=== PATIENT | male | born 1960 | race Caucasian/White ===

== ENCOUNTER 2020-02-29 13:46 | Inpatient (IN) | payer OTHER ==
[~2020-02-29] VITALS: Ht 167.6 cm; Wt 55.3 kg
[2020-02-29 13:48] VITALS: BP 156/94
[2020-02-29] MEDS ORDERED: LIPITOR 20 MG T20 M1 PO (14:16)
[2020-02-29] MEDS ORDERED: ZESTRIL5 MG PO (14:16)
[2020-02-29] MEDS ORDERED: FLOMAX0.4 MG PO (14:17)
[2020-02-29] MEDS ORDERED: ADULT ASPIRIN R81 MG PO (14:17)
[2020-02-29] MEDS ORDERED: PROAIR HFA8.5 GM INH (14:20)
[2020-02-29] MEDS ORDERED: COQ-1030 MG PO (14:30)
[2020-02-29] MEDS ORDERED: FLEXERIL PO (14:30)
[2020-02-29] MEDS ORDERED: IRON 100-VITAM1 EACH PO (14:31)
[2020-02-29 14:37] LABS: BE -7.5 mmol/L (-2 to +3); PCO2 47.8 mmHg (35.0-45.0)
[2020-02-29 14:41] LABS: PO2 306.9 mmHg (75.0-100.0)
[2020-02-29 14:51] LABS: HEMATOCRIT 44.5 % (42.0-52.0); HEMOGLOBIN 15.5 gm/dL (14.0-18.0); MCHC 34.7 g/dL (28.0-37.0); MCV 103.8 fL (80.0-100.0); MPV 7.5 fl. (7.2-11.1); NUCLEATED RBCS 0 /100WBC; PLATELET COUNT* 233 thou/uL (150-400); RBC 4.29 mil/uL (4.50-6.00); RDW-CV 14.8 % (10.5-14.5); WBC 17.7 thou/uL (4.0-11.0)
[2020-02-29 15:29] LABS: APTT 25.8 Seconds (25.0-31.3); INR 1.2; PROTIME 11.9 Seconds (9.20-11.50)
[2020-02-29 15:31] LABS: CALCIUM 9.1 mg/dL (8.5-10.1); CREATININE 0.9 mg/dL (0.6-1.3)
[2020-02-29 15:32] LABS: ABSOLUTE BASOPHILS 0.2 thou/uL (0.0-0.2); ABSOLUTE EOSINOPHILS 3.9 thou/uL (0.0-0.7); ABSOLUTE LYMPHOCYTES 2.7 thou/uL (0.8-5.3); ABSOLUTE MONOCYTES 0.9 thou/uL (0.0-1.2); ABSOLUTE NEUTROPHILS 10.1 thou/uL (1.6-8.1)
[2020-02-29 15:33] LABS: ANISOCYTOSIS Occasional; PLATELET ESTIMATE ADEQUATE
[2020-02-29 15:34] LABS: MACROCYTES 1+
[2020-02-29 15:41] LABS: ALBUMIN 3.1 g/dL (3.4-5.0); TOTAL BILIRUBIN 0.8 mg/dL (<0.1-1.0); TOTAL PROTEIN 7.6 g/dL (6.4-8.2)
[2020-02-29 15:44] LABS: POTASSIUM 2.9 mmol/L (3.5-5.1)
[2020-02-29 17:45] VITALS: BP 150/99
[2020-02-29 18:09] VITALS: BP 154/107
[2020-02-29 19:01] LABS: URINE BLOOD NEGATIVE (Negative); URINE CLARITY CLEAR; URINE COLOR DARK YELLOW; URINE GLUCOSE-RANDOM NEGATIVE (Negative); URINE KETONES NEGATIVE (Negative); URINE LEUKOCYTES-REFLEX NEGATIVE (Negative); URINE NITRITE-REFLEX NEGATIVE (Negative); URINE PROTEIN TRACE (Negative); URINE SPECIFIC GRAVITY >= 1.030 (1.005-1.030)
[2020-02-29 19:03] LABS: ICTOTEST (BILI CONFIRMATORY) Negative (Negative); URINE BILIRUBIN 1+ (Negative)
[2020-02-29 19:08] LABS: AMP/METHAMP Negative (Negative); BARBITURATES Negative (Negative); BENZODIAZEPINES Negative (Negative); COCAINE Negative (Negative); METHADONE Negative (Negative); OPIATES Negative (Negative); PCP Negative (Negative); THC POSITIVE (Negative)
--- NOTE | 2020-02-29 19:10 | NUR ---
PT ADMITTED TO ROOM 229 FROM ED AT APPROX 1805, REPORT RECEIVED FROM MYLES MI. PT CAME IN W/ SHORTNESS OF AIR AND IS CURRENTLY ON BIPAP, DOES NOT USE BIPAP OR WEAR OXYGEN AT HOME. PT ORIENTED TO ROOM AND CALL LIGHT, ADMISSION ASSESSMENT AND HX COMPLETED CHARTED, SEPSIS SCREENING COMPLETED, POSITIVE. PT AOX4, HAS NO C/O PAIN, TRACING ST ON THE MONITOR, MEDS PER OCT, HOURLY ROUNDING OBSERVED, PT UP AD BLAS, SHOWED HOW TO USE BIPAP AND HAS URINAL AT BEDSIDE TO USE WELL, WILL CONTINUE POC.
[2020-02-29 20:00] VITALS: BP 110/80
[2020-03-01] VITALS (7 sets, daily range): BP systolic 119–140; BP diastolic 74–88
[2020-03-01 04:50] LABS: HEMATOCRIT 38.7 % (42.0-52.0); HEMOGLOBIN 13.6 gm/dL (14.0-18.0); MCHC 35.1 g/dL (28.0-37.0); MCV 102.8 fL (80.0-100.0); MPV 8.4 fl. (7.2-11.1); RBC 3.77 mil/uL (4.50-6.00); RDW-CV 15.1 % (10.5-14.5); WBC 8.2 thou/uL (4.0-11.0)
[2020-03-01 05:09] LABS: ALBUMIN 2.7 g/dL (3.4-5.0); CALCIUM 8.6 mg/dL (8.5-10.1); TOTAL BILIRUBIN 0.7 mg/dL (<0.1-1.0); TOTAL PROTEIN 6.8 g/dL (6.4-8.2)
[2020-03-01 05:18] LABS: POTASSIUM 4.9 mmol/L (3.5-5.1)
--- NOTE | 2020-03-01 08:20 | NUR ---
ASSUMED CARE OF PT AFTER REPORT AT 1930. PT A&OX4. VSS. PHYSICAL ASSESSMENT COMPLETED AND CHARTED. PT ON BIPAP/3L NC WHEN EATING. PT TRACING SR/ST/PAC ON TELE. PT DENIES ANY PAIN. PT ABLE TO SLEEP WELL ON BED. CALL LIGHT WITHIN REACH.
--- NOTE | 2020-03-01 10:05 | EKG ---
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: : 1960 Requested By: Boone Heredia Order Number: [id number] MD: Zain Peraza Measurements Intervals [place] Rate: 156 P: 83 CT: 112 QRS: 74 QRSD: 90 T: -27 QT: 291 QTc: 469 Interpretive Statements Sinus tachycardia consecutive pac's with aberrancy Nonspecific T abnormalities, lateral leads Artifact in lead(s) I,II,aVR,aVL,V1,V3,V4,V5,V6 and baseline wander in lead(s) V2,V3,V4,V5,V6 No previous ECG available for comparison Electronically Signed On 03-01-2020 10:05:18 CDT by Zain Peraza [email or web address] <ELECTRONICALLY SIGNED> By: Zain Peraza MD, [facility] 03/01/20 1005 1352 1352 Zain Peraza MD, [facility] /EPI
--- NOTE | 2020-03-01 13:54 | NUR ---
ASSUMED PT CARE AT 0730, PT RESTING IN BED, AOX4 AND HAS NO C/O PAIN OR SHORTNESS OF BREATH. PT INITIALLY ON BIPAP THIS MORNING, SATTING 100% SO I TOOK BIPAP OFF AND PUT PT ON 3L NC SO HE COULD EAT BREAKFAST. PT SAT 98%, TITRATED HIM DOWN TO 1L, SAT 97% AND STILL NO C/O SHORTNESS OF BREATH. PT WORKING W/ RT TO GET BREATHING TREATMENTS AND HAS PULM ON BOARD WELL. PT TO BE MOVED TO ROOM 233 TO CONTINUE BREATHING TREATMENTS AND BIPAP AT NIGHT USE SINCE 233 IS A NEGATIVE PRESSURE ROOM. PT GOAL IS TO TRANSFER ROOMS AND KEEP O2 SATS ABOVE 92%. AM ASSESSMENT CHARTED, MEDS PER OCT, HOURLY ROUNDING OBSERVED, PT UP AD BLAS, WILL CONTINUE POC.
[2020-03-01 14:00] LABS: CALCIUM 8.9 mg/dL (8.5-10.1); POTASSIUM 5.1 mmol/L (3.5-5.1)
--- NOTE | 2020-03-01 16:36 | NUR ---
Pt in isolation, being tested for COVID 19. Pt lives at home with his sister in [place]. SW to continue to follow to assist with safe dc planning if needs arise.
--- NOTE | 2020-03-01 17:47 | CON ---
[address] [address] CONSULTATION Name: GABRIEL CHOI Room: [place] [address] ADM IN M.R.#: [id number] Admission: 02/29/20 Attend Phys: Nivia Shine Discharge: Date of : 62 Report #: [id number] THIS REPORT FOR: //name// cc: MEL William family physician/PCP MEL William family physician/PCP ~ THIS REPORT FOR: //name// CC: MEL physician/PCP Nivia Montero DATE OF SERVICE: 03/01/2020 REQUESTING PHYSICIAN: Consult has been requested by Dr. Nivia Montero. INDICATION FOR CONSULTATION: Shortness of breath. HISTORY OF PRESENT ILLNESS: The patient is a 59-year-old gentleman, whose past medical history includes a history of COPD. The patient is not known to be on oxygen or positive airway pressure therapy at home. He is an active smoker and smokes about 2 packs a day and has been smoking for several decades. The patient is from [facility] and was visiting friends and family here when he started developing increasing shortness of breath about a week ago. This worsened further yesterday, which is the reason the patient came to this hospital. The patient had used a nebulizer at home with marginal improvement. He does report a cough. He does report sputum production, says that it has been yellow as well as brown. He reports that he had a sore throat for the last several days. He says that the sore throat definitely is new for him and he does not usually have a sore throat. He reports some clear nasal discharge as well. He reports that he has had some clear nasal discharge, longstanding. He does not report a fever or chills. There is no swelling of lower extremities or calf pain. I asked him 12 other questions for review of systems. The patient answered to the negative except as mentioned above. He has not had fever or chills. Upon arrival, the patient was found to have a significant respiratory as well as metabolic acidosis with a pH of 7.24 and a pCO2 of 48. The patient was on average volume assured pressure support via a BiPAP overnight. He, since then, has been weaned off the BiPAP and is currently on 1 liter nasal cannula. He is oxygenating in the high 90s. The patient does still report significant shortness of breath, but it is better. His chest x-ray does not show acute findings, although there are changes consistent with COPD. PAST MEDICAL HISTORY: COPD, I do not have previous lung function studies available at this time; coronary artery disease, status post coronary artery bypass graft, I do not have any previous measure of his left ventricular ejection fraction available at this time either; hyperlipidemia; [place] [address] CONSULTATION Name: GABRIEL CHOI Room: [address] IN .R.#: [id number] Admission: 02/29/20 Attend Phys: Nivia Shine Discharge: Date of : 62 Report #: [id number] history of prostatism. SOCIAL HISTORY: He has an extensive history of smoking 2 packs a day for several decades, still smokes, also has a history of THC use. Reports weekly alcohol use. CURRENT MEDICATIONS: List in [employer] reviewed. HOME MEDICATIONS: List also in [employer] reviewed. FAMILY HISTORY: There is no pertinent family history known at this time. ALLERGIES: No known drug allergies. PHYSICAL EXAMINATION: GENERAL: Alert, awake and oriented. He does appear to be underweight, his body mass index is 19.9. VITAL SIGNS: He has a pulse of 91 and a blood pressure of 124/81. His respiratory rate is mildly elevated to around 22-24. He is afebrile with a temperature of 36.8. He is oxygenating in the high 90s. HEENT: Head is normocephalic and atraumatic. NECK: Does not show raised JVP, asymmetry, mass or lymph nodes. CHEST: Symmetrical expansion on inspection and palpation. On auscultation, breath sounds are decreased, expirations are prolonged. I do not hear any added sounds. HEART: Regular. There is no murmur. ABDOMEN: Soft and nontender. EXTREMITIES: Lower extremities show no edema and no calf tenderness. SKIN: Dry and intact. NEUROLOGICAL: Moves all extremities bilaterally equally and spontaneously with no focal deficit identified. LABORATORY DATA: The patient did have a chest x-ray done yesterday, it does show some hyperinflation consistent with COPD. I do not identify any infiltrate or increase in vascular congestion. On this x-ray, there is a small radiopaque density noted at the right lung base as well as left lung base. I do not see any definite infiltrate, both chronic changes as well as an early infiltrate and if small areas of atelectasis can give this picture. The patient did have an arterial blood gas performed yesterday in addition to showing a respiratory acidosis, it shows a metabolic acidosis as well, not fully compensated, pCO2 of 7.24. The arterial blood gas is in [employer] and is reviewed. The patient's CBC is in [employer], this is also reviewed. Macrocytosis is noted. [facility] These are also reviewed. Elevated LFTs are noted. BUN and creatinine are unremarkable. Mild elevation in creatinine trending up slightly this morning is noted. PT and PTT are within the normal range. I just ordered a D-dimer, which is pending. His toxicology screen is positive for [facility] [address] [id number] CONSULTATION Name: GABRIEL CHOI MARK Room: [place] [address] ADM IN ..#: [id number] Admission: 02/29/20 Attend Phys: Nivia Shine Discharge: Date of : 62 Report #: [id number] marijuana. His urinalysis shows trace protein and bilirubin in [employer] reviewed. Hepatitis panel is pending. COVID-19 antigen is negative, COVID-19 PCR is pending. ASSESSMENT AND PLAN: 1. Acute hypercarbic respiratory failure with metabolic as well as respiratory acidosis. The patient does have a history of chronic obstructive pulmonary disease and does appear to be in a chronic obstructive pulmonary disease exacerbation, which is the etiology of his acute respiratory failure. The reason why he has developed an acute exacerbation of COPD, does need to be defined further. The patient's history is consistent with a viral respiratory tract infection with secondary bacterial involvement. Thromboembolism is not ruled out at this time. For now, I would recommend keeping the patient on average volume assured pressure support via a BiPAP device while asleep, if feasible. It is, however, noted that the patient currently is not in a negative pressure room. Therefore, if the patient's COVID PCR is not back today, then I may do an arterial blood gas today to assess the importance of the use of BiPAP while asleep, but I would favor continuing. 2. Chronic obstructive pulmonary disease exacerbation. The patient remains on Xopenex. There is an expiratory filter being used with his nebs. He is also on budesonide as well as Solu-Medrol. I continued the same at this time. 3. Viral respiratory tract infection with secondary acute bacterial bronchitis. The patient's history is consistent with this. I do not see any definite infiltrates on the patient's chest x-ray, but I would repeat a chest x-ray to rule out any developing infiltrates. Meanwhile, I will recommend continuing with ceftriaxone and we will add azithromycin. The COVID-19 antigen is negative, pending PCR. The patient remains in enhanced isolation. 4. Abnormal liver function enzymes with metabolic acidosis, underlying thromboembolism does need to be ruled out as well. I will start by doing a D-dimer. If the D-dimer is elevated, I will go ahead and obtain venous Dopplers down the line or if the patient's condition deteriorates, he may benefit from obtaining an echocardiogram and may need a CTA chest as well. However, I have held off on ordering these for now considering that COVID-19 is not fully ruled out yet and the risk of exposure to staff from COVID-19 needs to be limited. 5. Deep vein thrombosis prophylaxis. Recommend Lovenox. 6. Clostridium difficile prophylaxis. Florastor. 7. Gastrointestinal prophylaxis, Pepcid. 8. Macrocytosis. We will obtain further history regarding his alcohol use. If not previously performed, then suggest considering obtaining B12 and folate levels. Thanks for this consultation. <ELECTRONICALLY SIGNED> By: Cecilio Bosch MD 03/01/20 1747 [id number] [id number] Bosch MD /nt
--- NOTE | 2020-03-01 18:29 | NUR ---
NO ACUTE CHANGES THROUGHOUT SHIFT, PT HAD NO C/O SHORTNESS OF BREATH OR PAIN. MEDS PER OCT, HOURLY ROUNDING OBSERVED, FALL PRECAUTIONS IN PLACE, PT STILL IN ISO AWAITING SECOND COVID TEST RESULTS, CALL LIGHT W/IN REACH, WILL CONTINUE POC.
[2020-03-02 04:00] VITALS: BP 145/88
[2020-03-02 04:17] LABS: ABSOLUTE BASOPHILS 0.1 thou/uL (0.0-0.2); ABSOLUTE LYMPHOCYTES 1.1 thou/uL (0.8-5.3); ABSOLUTE MONOCYTES 0.9 thou/uL (0.0-1.2); ABSOLUTE NEUTROPHILS 11.8 thou/uL (1.6-8.1); BASOPHILS 0.5 %; EOSINOPHILS 0.1 %; HEMATOCRIT 32.4 % (42.0-52.0); LYMPHOCYTES 8.1 %; MCH 35.7 pg (26.0-34.0); MCHC 35.2 g/dL (28.0-37.0); MCV 101.4 fL (80.0-100.0); MONOCYTES 6.3 %; MPV 7.6 fl. (7.2-11.1); NUCLEATED RBCS 0 /100WBC; PLATELET COUNT* 219 thou/uL (150-400); RDW-CV 14.8 % (10.5-14.5); WBC 13.9 thou/uL (4.0-11.0)
[2020-03-02 04:48] LABS: ALBUMIN 2.3 g/dL (3.4-5.0); CALCIUM 7.9 mg/dL (8.5-10.1); POTASSIUM 4.2 mmol/L (3.5-5.1); TOTAL BILIRUBIN 0.5 mg/dL (<0.1-1.0); TOTAL PROTEIN 5.8 g/dL (6.4-8.2)
[2020-03-02 04:55] LABS: HEMOGLOBIN 11.4 gm/dL (14.0-18.0)
--- NOTE | 2020-03-02 06:39 | NUR ---
PT ALERT ORIENTED. O2 AT 1 LITER NC. BIPAP HS. NS AT 80MLS/HR. DENIES PAIN. TELEMETRY SHOWS SR. COVID ISOLATION. SEND OFF TEST BACK THIS AM NEGATIVE
[2020-03-02 07:08] LABS: HEPATITIS B SURFACE AG Negative (Negative)
[2020-03-02 08:00] VITALS: BP 134/86
[2020-03-02 12:12] VITALS: BP 108/61
[2020-03-02 12:28] LABS: BE -3.1 mmol/L (-2 to +3); PCO2 28.2 mmHg (35.0-45.0); PO2 72.4 mmHg (75.0-100.0); pH 7.458 (7.340-7.450)
--- NOTE | 2020-03-02 14:04 | NUR ---
SPOKE WITH SISTER FROM [place]. SISTER STATES SHE IS THE MEDIA PRODUCTION OPERATOR FOR PT. HER CONTACT INFORMATION IS [phone] AND HER NAME IS EYAD LANDON. SISTER WOULD LIKE TO CONTACTED BY PHYSICIAN IF PT DC'S TOMORROM TO DISCUSS DC PLANNING AND IF SHE NEEDS TO ARRANGE FOR ANY EQUIPMENT TO BE AT HOME WHEN PT ARRIVES.
--- NOTE | 2020-03-02 16:58 | NUR ---
SW to continue to follow. Pt might be ready to dc tomorrow, SW to follow to assist if Bipap needed at time of dc.
[2020-03-02 20:00] VITALS: BP 135/77
[2020-03-03] VITALS: BP 128/80
[2020-03-03 04:00] VITALS: BP 135/76
[2020-03-03 04:39] LABS: HEMOGLOBIN 11.7 gm/dL (14.0-18.0); MCH 36.3 pg (26.0-34.0); MCHC 35.6 g/dL (28.0-37.0); MPV 8.3 fl. (7.2-11.1); NUCLEATED RBCS 0 /100WBC; PLATELET COUNT* 223 thou/uL (150-400); RBC 3.23 mil/uL (4.50-6.00); RDW-CV 15.2 % (10.5-14.5); WBC 10.6 thou/uL (4.0-11.0)
[2020-03-03 04:54] LABS: ALBUMIN 2.4 g/dL (3.4-5.0); CREATININE 0.9 mg/dL (0.6-1.3); POTASSIUM 3.9 mmol/L (3.5-5.1); TOTAL BILIRUBIN 0.5 mg/dL (<0.1-1.0); TOTAL PROTEIN 5.6 g/dL (6.4-8.2)
[2020-03-03 05:55] LABS: ABSOLUTE LYMPHOCYTES 0.6 thou/uL (0.8-5.3); ABSOLUTE MONOCYTES 0.4 thou/uL (0.0-1.2); ABSOLUTE NEUTROPHILS 9.5 thou/uL (1.6-8.1); PLATELET ESTIMATE ADEQUATE
[2020-03-03 05:56] LABS: ANISOCYTOSIS 1+; POIKILOCYTOSIS 1+
--- NOTE | 2020-03-03 06:13 | NUR ---
ASSUMED PT CARE AT 1930. NURSING ASSESSMENT COMPLETED AT START OF SHIFT. PT VOICED NO CONCERNS. HOURLY ROUNDING COMPLETED. 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 CALL LIGHT WITHIN REACH.
[2020-03-03 08:00] VITALS: BP 129/78
[2020-03-03 12:00] VITALS: BP 116/66
[2020-03-03] MEDS ORDERED: PREDNISONE 10 M10 MG PO (12:35)
[2020-03-03] MEDS ORDERED: PROTONIX40 M1 PO (12:35)
[2020-03-03] MEDS ORDERED: CEFDINIR300 MG PO (12:35)
[2020-03-03 14:20] VITALS: BP 116/66
--- NOTE | 2020-03-03 15:02 | NUR ---
PT DCD TO HOME IN STABLE CONDITION. DC INSTRUCTIONS,PRECSRITPIONS, FOLLOW UP,ACTIVITY DIET REVIEWED WITH PT AND PT REPORTS UNDERSTANDING WITHOUT FURTER QUESTIONS.
== END 2020-03-03 15:40 | disposition home or self-care (01) | DRG 871 ==
LOC: M.ERS 13:46 → M.2W 14:48 → M.TBA-ER 14:48 → M.2W 18:00
PROVIDERS: Family Medicine; Internal Medicine; Internal Medicine Critical Care Medicine; ADMIT Family Medicine; ATTEND Family Medicine
PROC: 5A09357 Assistance with Respiratory Ventilation, Less than 24 Consecutive Hours, Continuous Positive Airway Pressure (ICD-10-PCS; principal; 2020-02-29)
PROC: 5A09357 Assistance with Respiratory Ventilation, Less than 24 Consecutive Hours, Continuous Positive Airway Pressure (ICD-10-PCS; 2020-03-01)
DX: A41.9 Sepsis, unspecified organism (principal); J96.01 Acute respiratory failure with hypoxia; J96.02 Acute respiratory failure with hypercapnia; J44.1 Chronic obstructive pulmonary disease with (acute) exacerbation; E44.1 Mild protein-calorie malnutrition; Z68.1 Body mass index [BMI] 19.9 or less, adult; J44.0 Chronic obstructive pulmonary disease with (acute) lower respiratory infection; J45.909 Unspecified asthma, uncomplicated; F17.210 Nicotine dependence, cigarettes, uncomplicated; I25.10 Atherosclerotic heart disease of native coronary artery without angina pectoris; E87.6 Hypokalemia; D75.89 Other specified diseases of blood and blood-forming organs; Z20.828 Contact with and (suspected) exposure to other viral communicable diseases; J20.9 Acute bronchitis, unspecified; Z95.1 Presence of aortocoronary bypass graft; Z82.49 Family history of ischemic heart disease and other diseases of the circulatory system